=== PATIENT | male | born 1960 | race Caucasian/White ===

== ENCOUNTER 2020-01-08 12:02 | Emergency (ER) | payer OTHER ==
[2020-01-08 14:27] VITALS: BP 139/90
[2020-01-08 14:33] LABS: Influenza A Molecular Negative (Negative); Influenza B Molecular Negative (Negative)
--- NOTE | 2020-01-08 15:35 | UC ---
HPI Febrile Illness - HPI Summary HPI Summary: 59-year-old male comes in with a chief complaint of fever and some nasal congestion. Also some body aches. Started yesterday. Patient was in [facility] and he returned [place] on January 04, 2020. Has been using acetaminophen which does help with the fever and symptoms. Denies any chest congestion. Rhinorrhea is minimal. No complaint of sore throat. - History of Current Complaint Chief Complaint: UCRespiratory Time Seen by Provider: 01/08/20 13:57 Pain Intensity: 2 - Allergy/Home Medications Allergies/Adverse Reactions: Allergies Allergy/AdvReac Type Severity Reaction Status Date / Time No Known Allergies Allergy Verified 01/08/20 14:28 Home Medications: Home Medications Acetaminophen [Tylophen] 1,500 mg PO ONCE PRN 01/08/20 [History Confirmed ] Cholecalciferol (Vitamin D3) [Vitamin D3] 1 dose PO DAILY 01/08/20 [History Confirmed 01/08/20] Vitamin B Complex [Super B-50 Complex] 1 tab PO DAILY 01/08/20 [History Confirmed 01/08/20] tadalafiL [Tadalafil] 1 tab PO DAILY 01/08/20 [History Confirmed 01/08/20] PMH/Surg Hx/FS Hx/Imm Hx Previously Healthy: Yes - Surgical History Surgical History: Yes Surgery Procedure, Year, and Place: lumbar laminectomy. hernia x2. oral surgery - Family History Known Family History: Positive: Non-Contributory - Social History Alcohol Use: Daily Substance Use Type: None Smoking Status (MU): Never Smoked Tobacco Review of Systems All Other Systems Reviewed And Are Negative: Yes Constitutional: Positive: Fever, Other - SEE HPI Skin: Positive: Negative Eyes: Positive: Negative ENT: Positive: Nasal Discharge, Sinus Congestion Respiratory: Negative: Shortness Of Breath Cardiovascular: Positive: Negative Gastrointestinal: Positive: Negative Motor: Positive: Negative Neurovascular: Positive: Negative Musculoskeletal: Positive: Myalgia Neurological/Mental Status: Positive: Negative Psychological: Positive: Negative Is Patient Immunocompromised?: No Physical Exam Triage Information Reviewed: Yes Appearance: No Pain Distress, Well-Nourished, Ill-Appearing - MILD Vital Signs: Initial Vital Signs Temp 99.3 F 01/08/20 14:23 Pulse 77 01/08/20 14:23 Resp 18 01/08/20 14:23 BP 139/90 01/08/20 14:23 Pulse Ox 96 01/08/20 14:23 Vital Signs Reviewed: Yes Eye Exam: Normal Eyes: Positive: Conjunctiva Clear ENT: Positive: Pharynx normal, Nasal congestion, TMs normal Neck: Positive: Supple Respiratory: Positive: Lungs clear, Normal breath sounds, No respiratory distress Cardiovascular: Positive: RRR Musculoskeletal: Positive: Strength Intact, ROM Intact Neurological: Positive: Alert, Muscle Tone Normal Psychological: Positive: Age Appropriate Behavior Skin Exam: Normal Course/Dx - Course Course Of Treatment: Strep and flu were negative. Patient was discussed with the health department they recommended testing for coronavirus. To nasal swabs and a posterior pharynx swab were all obtained. Patient will continue symptomatic treatment and continue in isolation and follow-up with health Department. At this time there is no obvious bacterial infection. If the patient worsens he is to get reevaluated emergency department. - Diagnoses Provider Diagnosis: Febrile illness Discharge ED - Sign-Out/Discharge Documenting (check all that apply): Patient Departure All imaging exams completed and their final reports reviewed: No Studies - Discharge Plan Condition: Stable Disposition: HOME Patient Education Materials: Viral Syndrome (ED), Fever in Adults (ED) Referrals: Leoncio Azul MD [Primary Care Provider] - [facility] [Outside] Additional Instructions: CONTINUE ISOLATION DISCUSSED WITH THE HEALTH DEPARTMENT. FOLLOW UP WITH YOUR DOCTOR IF NOT COMPLETELY IMPROVED. GO TO THE EMERGENCY DEPARTMENT IF WORSE; SHORTNESS OF BREATH, YOUR CONDITION WORSENS OR ANY QUESTIONS OR CONCERNS. - Billing Disposition and Condition Condition: STABLE Disposition: Home
== END 2020-01-08 15:50 | disposition home or self-care (01) ==
LOC: UCEAST 12:02
DX: R50.9 Fever, unspecified (principal)
CPT/HCPCS: 87651; 99211; G0463